=== PATIENT | female | born 1980 | race Caucasian/White ===

== ENCOUNTER 2021-04-21 14:03 | Outpatient (REF) | payer MEDICAID, SELFPAY ==
[2021-04-21 14:25] LABS: Binax Internal Control QC Valid; Binax Now Covid-19 Ag Negative (Negative)
== END 2021-04-21 14:04 | disposition home or self-care (01) ==
LOC: HO.LAB 14:03
PROVIDERS: PCP Family Medicine; Visit Provider Internal Medicine
DX: Z20.822 Contact with and (suspected) exposure to COVID-19 (principal)
CPT/HCPCS: C9803